=== PATIENT | male | born 1965 | race Hispanic/Latino ===

== ENCOUNTER 2024-12-18 06:27 | Observation (INO) | payer OTHER ==
[2024-12-12 12:14] LABS: BASOPHILS # (AUTO) 0.05 K/uL (0.00-0.20); BASOPHILS % (AUTO) 0.6 % (0.0-5.0); EOSINOPHILS # (AUTO) 0.33 K/uL (0.00-0.70); EOSINOPHILS % (AUTO) 4.3 % (0.0-8.0); HEMATOCRIT 46.2 % (42-54); IMMATURE GRANULOCYTE ABSOLUTE 0.04 K/uL (0-1); LYMPHOCYTES # (AUTO) 1.4 K/uL (1.0-4.8); LYMPHOCYTES % (AUTO) 18.6 % (21.0-51.0); MEAN CORPUSCULAR HEMOGLOBIN 30.9 pg (27.0-33.0); MEAN CORPUSCULAR HGB CONC 35.5 g/dL (32.0-36.0); MEAN CORPUSCULAR VOLUME 87.2 fL (79-99); MONOCYTES # (AUTO) 0.7 K/uL (0.1-1.0); MONOCYTES % (AUTO) 9.4 % (3.0-13.0); NEUTROPHILS # (AUTO) 5.2 K/uL (1.8-7.7); NEUTROPHILS % (AUTO) 66.6 % (40.0-77.0); PLATELET COUNT (AUTO) 225 K/uL (130-400); RED CELL DISTRIBUTION WIDTH 12.7 % (11.0-15.5); WHITE BLOOD COUNT (AUTO) 7.8 K/uL (4.8-10.8)
[2024-12-12 12:27] LABS: PROTHROMBIN TIME 10.6 SEC (9.6-11.6)
[2024-12-12 12:28] LABS: PARTIAL THROMBOPLASTIN TIME 27.3 SEC (26.3-35.5)
[2024-12-12 12:29] VITALS: BP 116/70; PULSE 55; RESP 20; TEMP 97.5
[2024-12-12 12:33] LABS: ALBUMIN 3.9 g/dL (3.5-5.0); CREATININE 0.9 mg/dL (0.5-1.3); POTASSIUM 3.9 mmol/L (3.5-5.1)
--- NOTE | 2024-12-12 12:45 | NUR ---
RE: IS INITIAL IS INITIAL TEACHING DONE BY RT MAGDY DURING PREOP
[2024-12-18] VITALS (17 sets, daily range): BP systolic 104–145; BP diastolic 56–83; PULSE 60–94; RESP 16–20; TEMP 97.6–97.8
[~2024-12-18] VITALS: Ht 172.7 cm; Wt 125.6 kg
[~2024-12-18 06:27] MED LIST: AMLO-257 PO; ASCO500T10 PO; ASPI-1197 PO; ATOR10TA69 PO; BUSP10TA3 PO; CHOL100046 PO; CYAN-35 PO; DOCU100C33 PO; ELDERBERRY PO; GABA-529 PO; LEVO5TAB29 PO; PROP20TA7 PO; SERT-440 PO; VITA-395 PO; ZINC220T4 PO
[2024-12-18] MEDS ORDERED: LACTATED RINGERS 1000ML 1,000 ML IV ONE (07:04)
[2024-12-18] MEDS ORDERED: FERROUS FUMARATE 324 MG TABLET PO PRN (07:30)
[2024-12-18] MEDS ORDERED: ondanSETRON 4MG INJ IVP PRN (07:30)
[2024-12-18] MEDS ORDERED: CALCIUM CARB 500MG PO PRN (07:30)
[2024-12-18] MEDS ORDERED: PoTASSium chloRIDE 20MEQ ER 20 MEQ ERTAB PO PRN (07:30)
[2024-12-18] MEDS ORDERED: DiphenhydrAMINE HCL 50 MG/ML VIAL IVP PRN (07:30)
[2024-12-18] MEDS ORDERED: PoTASSium chloRIDE 20MEQ/100ML 100 ML IV PRN (07:30)
[2024-12-18] MEDS ORDERED: HYDROcodone/APAP 5/325 1 TAB TABLET PO PRN (07:30)
[2024-12-18] MEDS ORDERED: PoTASSium chl 10% ELIXIR 20MEQ 20 MEQ/15 ML UDCUP PO PRN (07:30)
--- NOTE | 2024-12-18 07:34 | DS ---
Discharge Summary Hospital Course Summary: The patient was admitted to the hospital postoperatively on 12/18/2024 after undergoing left total knee arthroplasty. They did well with routine postoperative pain control. They worked well with physical therapy. The hospital course was otherwise uncomplicated. They were subsequently able to be discharged on postoperative day [] once discharge arrangements were made with home health physical therapy. Grinder Set Up Operator Internal(s): None Procedure(s): Left total knee arthroplasty, 12/18/2024 Assessment/Plan: ASSESSMENT: Status post left total knee arthroplasty doing well PLAN: See discharge instructions Discharge Instructions: Begin working with home health physical therapy. Dressing may be removed 12/20/2024 and left open to air. Showers ok allowing soap and water to run over the wound. Pat dry. Do not submerge wound in tub/pool. Do not apply ointments. Do not apply Betadine. Do not apply peroxide. Ice packs to decrease pain/swelling. Prescriptions have been sent to the pharmacy: *Buckner 5/325mg 1-2 tab every 6 hours as needed for severe pain. (please call for refills) Cyclobenzaprine 5mg 1 tab every 8 hours as needed for muscle spasm pain. Colace 100mg 1 tab orally twice a day as needed for constipation. Aspirin 325mg twice a day for 30 days to prevent blood clots. Call for a follow-up appointment in 2-3 weeks at [facility]. Home Medications: Reported Medications Hydroxyzine HCl (Hydroxyzine HCl) 25 Mg Tablet, 1 TAB PO HSPRN PRN for SLEEP for 30 Days, #60 TAB 0 Refills 12/18/24 Buspirone HCl (Buspirone HCl) 10 Mg Tablet, 20 MG PO BID, TAB 12/12/24 Vitamin E (Dl,Tocopheryl Acet) (Vitamin E) 180 Mg (400 Unit) Capsule, 360 MG PO BID, CAP 12/12/24 Sertraline HCl (Sertraline HCl) 100 Mg Tablet, 250 MG PO DAILY, TAB 12/12/24 Docusate Sodium (Docusate Sodium) 100 Mg Capsule, 100 MG PO DAILY, CAP 12/12/24 Atorvastatin Calcium (Atorvastatin Calcium) 10 Mg Tablet, 10 MG PO HS, TAB 12/12/24 Propranolol HCl (Propranolol HCl) 20 Mg Tablet, 20 MG PO BID, TAB 12/12/24 Gabapentin (Gabapentin) 100 Mg Capsule, 200 MG PO TID, CAP 12/12/24 Amlodipine Besylate (Amlodipine Besylate) 5 Mg Tablet, 5 MG PO BID, TAB 12/12/24 Zinc Sulfate (Zinc) 50 Mg Zinc (220 Mg) Tablet, 50 MG PO DAILY, TAB 12/12/24 [Elderberry] No Conflict Check, 1000 MG PO DAILY 12/12/24 Cyanocobalamin (Vitamin B-12) (Vitamin B-12) 1,000 Mcg Capsule, 1000 MCG PO DAILY, CAP 12/12/24 Ascorbic Acid (Ascorbic Acid) 500 Mg Tablet, 500 MG PO BID, TAB 12/12/24 Cholecalciferol (Vitamin D3) (Vitamin D3) 25 Mcg (1000 Unit) Capsule, 25 MCG PO DAILY, CAP 12/12/24 Levocetirizine Dihydrochloride (Xyzal) 5 Mg Tablet, 5 MG PO HS, TAB 12/12/24 Aspirin (Aspirin) 81 Mg Tab.chew, 81 MG PO DAILY, TAB.CHEW 12/12/24 MALAIKA KING MD December 18, 2024 07:34
[2024-12-18] MEDS ORDERED: HYDR-3421 PO (07:58)
[2024-12-18] MEDS ORDERED: ROPivacaine 0.5% 5MG/ML 30ML ONE (08:11)
[2024-12-18] MEDS ORDERED: ketOROlac 30MG VIAL (30MG/ML) ONE (08:11)
[2024-12-18] MEDS ORDERED: proPOFol 10 MG/ML 20ML VIAL IV ONE (08:43)
[2024-12-18] MEDS ORDERED: rocuRONium bROMide 10MG/1ML 5ML VL ONE ×2 (08:43→09:31)
[2024-12-18] MEDS ORDERED: LIDOCAINE PF 100MG/5ML (2%) SYRINGE 5ML ONE (08:43)
[2024-12-18] MEDS ORDERED: FENTanyl CITRate PF 50 MCG/1 ML 2ML VIAL ONE ×2 (08:43→10:09)
[2024-12-18] MEDS ORDERED: SUCCINYLCHOLINE CHLORIDE 20 MG/ML 10 ML VIAL ONE (08:43)
[2024-12-18] MEDS ORDERED: MIDAZOLAM HCL 1 MG/ML 2ML VIAL ONE (08:43)
[2024-12-18] MEDS: polyETHYLene GLYCol 3350 17 GM POWD.PACK PO SCH (09:00)
[2024-12-18] MEDS: ELDERBERRY PO SCH (09:00)
[2024-12-18] MEDS: CYANOCOBALAMIN (VITAMIN B-12) 1,000 MCG TABLET PO SCH (09:00)
[2024-12-18] MEDS: Cholecalciferol (Vitamin D3) 25 MCG PO SCH (09:00)
[2024-12-18] MEDS: SERTRALINE HCL 250 MG PO SCH (09:00)
[2024-12-18] MEDS: ceFAZolin SODIUM 1 GM VIAL ONE (09:10)
[2024-12-18] MEDS: ceFAZolin SODIUM 2 GM VIAL ONE (09:10)
[2024-12-18] MEDS: TRANEXAMIC ACID 1000MG/10ML ONE (09:15)
[2024-12-18] MEDS ORDERED: GLYCOPYRROLATE 0.2 MG/ML 5 ML VIAL ONE (11:07)
[2024-12-18] MEDS ORDERED: dexaMETHasone SOD PHOSPHATE 10MG/ML 1ML VIAL ONE (11:08)
[2024-12-18] MEDS ORDERED: NEOSTIGMINE METHYLSULFATE 1MG/ML IV ONE (11:08)
[2024-12-18] MEDS ORDERED: ondanSETRON 4MG INJ ONE (11:09)
[2024-12-18] MEDS: ketOROlac 15MG/ML VIAL (15MG/ML) IV SCH (11:55)
[2024-12-18] MEDS: ketOROlac 15MG/ML VIAL (15MG/ML) ONE (11:56)
--- NOTE | 2024-12-18 13:21 | OP ---
Operative Note: DATE OF PROCEDURE: 12/18/24 PREOPERATIVE DIAGNOSIS: Left knee osteoarthritis. POSTOPERATIVE DIAGNOSIS: Left knee osteoarthritis. PROCEDURE PERFORMED: Left knee total knee arthroplasty. SURGEON: Tomasa Reynoso MD SENIOR SQL SERVER DATABASE DEVELOPER: Letty Alanis and Ely Salgado. ANESTHESIA: General with adductor canal block. ANESTHESIA: NELLI Irwin. ESTIMATED BLOOD LOSS: 50cc. COMPLICATIONS: None. DRAINS: None. SPECIMENS REMOVED: resected bone. Not sent to pathology. IMPLANTS: [employer] Journey II BCS size 7 Oxinium femur, size 5 tibial base plate, 35 x 7.5 mm patella, 9 mm polyethylene STATEMENT OF MEDICAL NECESSITY: The patient is a 59-year-old male who suffers from left knee osteoarthritis failing conservative management. After discussion of the risks, benefits, and alternatives with the patient, they voluntarily agreed to undergo the aforementioned procedure. DESCRIPTION OF PROCEDURE: Patient was properly identified in the preoperative holding area. Surgical site marking was verified and surgery consent reviewed. The patient was then taken to the operating room and placed in supine position on the OR table. After induction of general anesthesia, preoperative antibiotics were given, all bony prominences were well-padded, and a well padded tourniquet was applied but not inflated at this time. The left lower extremity was then prepped and draped in usual sterile fashion. Surgical time out was done verifying correct surgery, side, site, and location to be performed. We then began the procedure by exsanguinating the limb using an Esmarch and inflating the tourniquet to 350 mmHg. At this point, we made an anterior midline incision using a 10 blade, coming down sharply the level of the fascia. Skin flaps were elevated medially and laterally. We then obtained a clean 10 blade and performed a standard medial parapatellar arthrotomy. We excised the infrapatellar fat pad. We performed our soft tissue releases off of the tibia. We transected the ACL and removed the anterior portion of the medial & lateral meniscus. We then brought the knee into hyperflexion with the patella everted. We used our entry reamer to enter the femoral canal. We then placed our intramedullary cutting guide for our distal femoral cutting block. We then performed our distal femoral osteotomy ensuring appropriate rotation and removed the bony wafer. We then removed these pins and block and then used jig 2 to size the distal femur with the aforementioned size found. We then placed our 5-in-1 cutting block in 4 degrees of external rotation and took our 5 cuts ensuring to protect the patellar tendon and the collateral ligaments. We then removed the cutting block and our bony fragments using a curved osteotome. We then placed our PCL retractor subluxating the tibia anteriorly. Using an extra medullary tibial cutting guide, we hung the block for our proximal tibial cut taking 2 mm off the more diseased portion. Prior to pinning this block in place, we ensured appropriate varus/valgus alignment and posterior slope similar to the [place] slope of the patient's knee. We then performed our proximal tibia l osteotomy and removed the bony wafer using Bovie electrocautery to release any remaining soft tissue attachments. We then used our tibial sizing paddle and checked once more for varus & valgus alignment and found this to be appropriate. At this point, we pinned our tibial paddle in place. We then removed the PCL retractor and subluxated the tibia posteriorly while we placed our femoral trial component. We then finished preparing the notch with the reamer and box chisel. The notch portion of the trial femoral component was then placed. A posterior stabilized polyethylene, size 9 trial was placed. We ended up performing a post erior capsular release in the medial side with the small release the anterior portion of the MCL to leave some tightness present. The knee was then taken through range of motion and found to have stable full range of motion. We then placed a bump under the ankle and everted the patella to perform our freehand cut of the undersurface the patella. We then sized our patella and reamed to the lug holes for this. We placed our trial patellar component and begin to take the knee through range of motion. The patella had significant lateral tracking so we performed a lateral release. At this point we began removing our trial components and punched the tibial keel prior to removing our tibial trial component. Final components were opened and cement was mixed on the back table while we injected local cocktail in the posterior capsule. We then thoroughly irrigated out the bone and dried the bony surfaces. We cemented our tibial component in place ensuring to remove excess cement and placed our trial polyethylene. We then cemented our femoral component in place once again taking time to ensure excess cement was removed leg was brought into full extension to help squeeze the excess cement from around the femoral component. We then brought the knee back in a flexion to remove this portion of the cement at this point we placed the ankle in a bump thoroughly irrigated off the patellar component and cemented our patellar component in standard fashion again removing excess cement. While we waited for the cement to cure, we thoroughly irrigated out the wound with normal saline. Once our cement had cured, we took the knee through a range of motion and found full and stable range of motion. We then elected to use the size 9 polyethylene and removed our trial polyethylene. We impacted our final polyethylene component in place in standard fashion and took the knee through a range of motion check once more. This was satisfactory so we began to repair the arthrotomy using #1 Vicryl in interrupted [id number] fashion. Subcutaneous tissue was repaired using 2-0 Vicryl. Running subcuticular 3-0 Monocryl stitch with Dermabond placed over this for the skin. We then applied a foam barrier dressing and a pressure dressing consisting of 4 x 4's fluffs and an Teodoro wrap. The tourniquet was then deflated. Patient was awakened from anesthesia, and they were taken to the recovery room in stable condition. TOMASA REYNOSO MD December 18, 2024 13:21
--- NOTE | 2024-12-18 13:41 | HMCIMG ---
Exam Type: KNEE/PATELLA 1-2VWS LT Clinical Information: S/P LEFT TKA SURGERY Comparison: None Findings: Routine views of the knee are without evidence of fracture, dislocation, arthritic, or inflammatory change. There is status post knee replacement with adequate visualization and alignment of bony and hardware elements. No complications are seen. There are vascular calcifications. The joint space is well maintained and there is no effusion. IMPRESSION: Status post knee replacement.
--- NOTE | 2024-12-18 14:00 | NUR ---
Order received and patient seen. Patient has a Rollator at home, will need SW upon DC. Plan is for DC home with family. PT team to follow. Addendum: 12/18/24 at 1429 by IFEANYI WATTS PT Amended: Links added.
[2024-12-18] MEDS: ketOROlac 15MG/ML VIAL (15MG/ML) IV PRN (15:44)
--- NOTE | 2024-12-18 17:00 | NUR ---
ORTHO COORDINATOR: TEACHING REGARDING DVT AND PNEUMONIA PREVENTION, PAIN EXPECTATIONS AND PAIN MANAGEMENT. PATIENT IN BED, JUST FINISHED REGULAR DIET TRAY, 100% CONSUMED. AT BEDSIDE. B SCD SLEEVES IN PLACE AND FUNCTIONING. INCENTIVE SPIROMETER AT BEDSIDE. PATIENT RETURN DEMONSTRATED PROPER USE OF INCENTIVE SPIROMETER AND FOOT FLEXION/EXTENSION EXERCISES. PRIMARY NURSE AT BEDSIDE. PATIENT ABLE TO VERBALIZE FREQUENCY OF USE OF INCENTIVE SPIROMETER. NUMERIC PAIN SCALE REVIEWED. PATIENT ENCOURAGED TO SET AN ALARM FOR EVERY FOUR HOURS AND PERFORM A PAIN SELF ASSESSMENT, CALL OUT FOR NURSE AND PROVIDE NUMERIC PAIN LEVEL WITH TYPE OF PAIN. DISCUSSED AFTERCARE, PATIENT INTENDS ON DISCHARGE TO HOME WITH HOME HEALTH PHYSICAL THERAPY. REVIEWED FIRST VISIT WOULD BE WITH A NURSE, SECOND WITH A PHYSICAL THERAPIST. EXPECTATION SET FOR PATIENT TO SHOWER TOMORROW. RATIONALE PROVIDED. PATIENT A VERBALIZED UNDERSTANDING TO ALL TEACHING. NO ADDITIONAL QUESTIONS OR CONCERNS AT THIS TIME.
[2024-12-18] MEDS: 0.9%NACL 1000ML 1,000 ML IV SCH (17:30)
[2024-12-18] MEDS: HYDROcodone/acetaMINOPHEN 10/325 MG TAB PO PRN (18:21)
[2024-12-18] MEDS: GABApentin 100 MG CAPSULE PO SCH (21:23)
[2024-12-18] MEDS: BUSPIRONE HCL 20 MG PO SCH (21:24)
[2024-12-18] MEDS: PROPRANOLOL HCL 20 MG TAB PO SCH (21:24)
[2024-12-18] MEDS: ASCORBIC ACID 500 MG TAB PO SCH (21:24)
[2024-12-18] MEDS: ceFAZolin SODIUM 2 GM VIAL IVP SCH (21:24)
[2024-12-18] MEDS: VITAMIN E 400 UNIT CAPSULE PO SCH (21:24)
[2024-12-18] MEDS: doCUSate SODIUM 100 MG CAP PO SCH (21:24)
[2024-12-18] MEDS: amLODIPine 5 MG TAB PO SCH (21:24)
[2024-12-18] MEDS: atorVAStatin 10 MG TABLET PO SCH (21:24)
[2024-12-19] VITALS (7 sets, daily range): BP systolic 132–145; BP diastolic 74–89; PULSE 65–85; RESP 18–22; TEMP 97.8–99; O2SAT 93
[2024-12-19 04:02] LABS: HEMATOCRIT 42.1 % (42-54); MEAN CORPUSCULAR HEMOGLOBIN 30.5 pg (27.0-33.0); MEAN CORPUSCULAR HGB CONC 34.9 g/dL (32.0-36.0); MEAN CORPUSCULAR VOLUME 87.3 fL (79-99); RED BLOOD CELL COUNT(AUTO) 4.82 MIL/uL (4.50-6.20); RED CELL DISTRIBUTION WIDTH 12.7 % (11.0-15.5); WHITE BLOOD COUNT (AUTO) 17.2 K/uL (4.8-10.8)
[2024-12-19 04:45] LABS: CREATININE 1.2 mg/dL (0.5-1.3)
--- NOTE | 2024-12-19 07:59 | PN ---
Ortho postop day one. This morning the patient is awake alert and oriented. His is present in the room. Reports adequate pain control. He is out of bed seated on a chair alternating extension and flexion of the operative extremity with a footstool. Ice is present to operative site and the Teodoro bandage his already been removed with the dressing intact. The gastrocnemius a soft and nontender negative Homans. Vital signs have remained stable and he is afebrile. Voiding on his own without difficulty passing gas as well. Laboratory results reviewed. Reinforced incentive spirometry and returned demonstration adequate. Ambulated with physical therapy approximately 10 ft in his pending further physical therapy this morning. The patient is anticipating going home with a home health. He is requesting that his discharge pain medication be sent to [facility]. Assessment: Status post left total knee arthroplasty. Plan: Continue with Dr. Reynoso's TKA protocol and discharge planning Vitals/Labs Vital Signs Date Time Temp Pulse Resp B/P (MAP) Pulse Ox O2 Delivery O2 Flow Rate FiO2 12/19/24 04:00 99.0 85 20 136/78 93 Room Air 12/18/24 21:25 0 21 Laboratory Tests 12/19/24 03:38 Medications Current Medications Cefazolin Sodium 1 gm STK-MED ONCE .ROUTE Last administered on 12/18/24at 09:10; Start 12/18/24 at 07:04; Stop 12/18/24 at 07:07; Status DC Cefazolin Sodium 2 gm STK-MED ONCE .ROUTE Last administered on 12/18/24at 09:10; Start 12/18/24 at 07:04; Stop 12/18/24 at 07:07; Status DC Lactated Ringer's 1,000 ml @ As Directed STK-MED ONCE IV; Start 12/18/24 at 07:04; Stop 12/18/24 at 07:07; Status DC Sodium Chloride 1,000 ml @ 100 mls/hr Q10H IV; Start 12/18/24 at 07:30; Stop 12/19/24 at 07:29; Status DC Polyethylene Glycol 17 gm DAILY PO; Start 12/18/24 at 09:00; Stop 01/17/25 at 08:59 Bisacodyl 10 mg DAILY PRN RC; Start 12/21/24 at 07:30; Stop 01/20/25 at 07:29 Ketorolac Tromethamine 15 mg Q6H PRN IV Last administered on 12/18/24at 15:44; Start 12/19/24 at 07:30; Stop 12/24/24 at 07:29 Ferrous Fumarate 324 mg DAILY PRN PO; Start 12/18/24 at 07:30; Stop 01/17/25 at 07:29 Ondansetron HCl 4 mg Q6H PRN IVP; Start 12/18/24 at 07:30; Stop 01/17/25 at 07:29 Calcium Carbonate 500 mg Q12H PRN PO; Start 12/18/24 at 07:30; Stop 01/17/25 at 07:29 Diphenhydramine HCl 25 mg Q6H PRN IVP; Start 12/18/24 at 07:30; Stop 01/17/25 at 07:29 Cefazolin Sodium 2 gm Q8H IVP Last administered on 12/18/24at 21:24; Start 12/18/24 at 12:30; Stop 12/18/24 at 20:31; Status DC Cyclobenzaprine HCl 5 mg Q8H PRN PO; Start 12/18/24 at 07:30; Stop 01/17/25 at 07:29 Aspirin 325 mg DAILY PO; Start 12/19/24 at 09:00; Stop 01/18/25 at 08:59 Ketorolac Tromethamine 15 mg Q8H IV Last administered on 12/18/24at 23:22; Start 12/18/24 at 07:30; Stop 12/18/24 at 23:31; Status DC Docusate Sodium 100 mg BID PO Last administered on 12/18/24at 21:24; Start 12/18/24 at 09:00; Stop 01/17/25 at 08:59 Potassium Chloride 100 ml @ 100 mls/hr AD PRN IV; Start 12/18/24 at 07:30; Stop 01/17/25 at 07:29 Potassium Chloride 20 meq AD PRN PO; Start 12/18/24 at 07:30; Stop 01/17/25 at 07:29 Potassium Chloride 20 meq AD PRN PO; Start 12/18/24 at 07:30; Stop 01/17/25 at 07:29 Tramadol HCl 50 mg Q6H PRN PO; Start 12/18/24 at 07:30; Stop 12/23/24 at 07:29 Acetaminophen/ Hydrocodone Bitart Q4H PRN PO; Start 12/18/24 at 07:30; Stop 12/18/24 at 08:00; Status DC Amlodipine Besylate 5 mg BID PO Last administered on 12/18/24at 21:24; Start 12/18/24 at 09:00; Stop 01/17/25 at 08:59 Ascorbic Acid 500 mg BID PO Last administered on 12/18/24at 21:24; Start 12/18/24 at 09:00; Stop 01/17/25 at 08:59 Atorvastatin Calcium 10 mg HS PO Last administered on 12/18/24at 21:24; Start 12/18/24 at 21:00; Stop 01/17/25 at 20:59 Gabapentin 200 mg TID PO Last administered on 12/18/24at 21:23; Start 12/18/24 at 09:00; Stop 01/17/25 at 08:59 Propranolol HCl 20 mg BID PO Last administered on 12/18/24at 21:24; Start 12/18/24 at 09:00; Stop 01/17/25 at 08:59 Vitamin E 400 unit BID PO Last administered on 12/18/24at 21:24; Start 12/18/24 at 09:00; Stop 01/17/25 at 08:59 Home Med Buspirone HCl 20 MG BID PO Last administered on 12/18/24at 21:24; Start 12/18/24 at 09:00; Stop 01/17/25 at 08:59 Home Med Cholecalciferol (Vitamin D3) 25 MCG DAILY PO; Start 12/18/24 at 09:00; Stop 01/17/25 at 08:59 Vitamin B Complex 1,000 mcg DAILY PO; Start 12/18/24 at 09:00; Stop 01/17/25 at 08:59 Home Med Levocetirizine Dihydrochloride (Xyzal) 5 MG HS PO; Start 12/18/24 at 21:00; Stop 01/17/25 at 20:59 Home Med Sertraline HCl 250 MG DAILY PO; Start 12/18/24 at 09:00; Stop 01/17/25 at 08:59 Home Med Zinc Sulfate (Zinc)... DAILY PO; Start 12/18/24 at 09:00; Stop 01/17/25 at 08:59 Home Med [Elderberry] 1,000 MG DAILY PO; Start 12/18/24 at 09:00; Stop 01/17/25 at 08:59 Acetaminophen/ Hydrocodone Bitart 1 tab Q6H PRN PO; Start 12/18/24 at 08:00; Stop 12/23/24 at 07:59 Acetaminophen/ Hydrocodone Bitart 1 tab Q6H PRN PO Last administered on 12/19/24at 03:37; Start 12/18/24 at 08:00; Stop 12/25/24 at 07:59 Ketorolac Tromethamine 30 mg STK-MED ONCE .ROUTE; Start 12/18/24 at 08:11; Stop 12/18/24 at 08:11; Status DC Ropivacaine 150 mg STK-MED ONCE .ROUTE; Start 12/18/24 at 08:11; Stop 12/18/24 at 08:11; Status DC Lidocaine HCl 100 mg STK-MED ONCE .ROUTE; Start 12/18/24 at 08:43; Stop 12/18/24 at 08:43; Status DC Succinylcholine Chloride 200 mg STK-MED ONCE .ROUTE; Start 12/18/24 at 08:43; Stop 12/18/24 at 08:43; Status DC Propofol 200 mg STK-MED ONCE IV; Start 12/18/24 at 08:43; Stop 12/18/24 at 08:43; Status DC Midazolam HCl 2 mg STK-MED ONCE .ROUTE; Start 12/18/24 at 08:43; Stop 12/18/24 at 08:43; Status DC Rocuronium [place] 50 mg STK-MED ONCE .ROUTE; Start 12/18/24 at 08:43; Stop 12/18/24 at 08:43; Status DC Fentanyl Citrate 100 mcg STK-MED ONCE .ROUTE; Start 12/18/24 at 08:43; Stop 12/18/24 at 08:43; Status DC Tranexamic Acid 1,000 mg STK-MED ONCE .ROUTE Last administered on 12/18/24at 09:15; Start 12/18/24 at 09:02; Stop 12/18/24 at 09:03; Status DC Rocuronium [place] 50 mg STK-MED ONCE .ROUTE; Start 5/14/25 at 09:31; Stop 12/18/24 at 09:31; Status DC Fentanyl Citrate 100 mcg STK-MED ONCE .ROUTE; Start 12/18/24 at 10:09; Stop 12/18/24 at 10:09; Status DC Glycopyrrolate 1 mg STK-MED ONCE .ROUTE; Start 12/18/24 at 11:07; Stop 12/18/24 at 11:08; Status DC Neostigmine Methylsulfate 10 mg STK-MED ONCE IV; Start 12/18/24 at 11:08; Stop 12/18/24 at 11:08; Status DC Dexamethasone Sodium Phosphate 10 mg STK-MED ONCE .ROUTE; Start 12/18/24 at 11:08; Stop 12/18/24 at 11:09; Status DC Ondansetron HCl 4 mg STK-MED ONCE .ROUTE; Start 12/18/24 at 11:09; Stop 12/18/24 at 11:09; Status DC Ketorolac Tromethamine 15 mg STK-MED ONCE .ROUTE; Start 12/18/24 at 11:50; Stop 12/18/24 at 11:51; Status DC TOÑITO GALLAGHER NP December 19, 2024 07:59
[2024-12-19] MEDS: traMADol HCL 50 MG TABLET PO PRN (08:38)
[2024-12-19] MEDS: ASPIRIN 325MG EC TAB PO SCH (08:39)
--- NOTE | 2024-12-19 11:38 | NUR ---
[facility] CM MET WITH PT AND HIS THIS MORNING, INITIAL ASSESSMENT DONE. PATIENT IS INDEPENDENT PRIOR TO SURGERY, LIVES AT HOME WITH HIS . PATIENT HAS A ROLLATOR WALKER, CANE, CPAP, BPM MACHINE. DENIES ANY OTHER EQUIPMENT/SERVICES. FEELS SAFE TO GO BACK HOME, STILL DRIVE, ABLE TO ASSIST WITH TRANSPORTATION AND NEEDS NECESSARY. DISCUSSED MD RECOMMENDATIONS FOR HOME W/HH AND DME FOR WALKER, PT AGREEABLE, ALSO REQUESTING TO HAVE A BEDSIDE COMMODE HIS TOILET IS LOW, CONSENT SINGED [facility] FOR [place] ASSIGNED HOME HEALTH AND DME. [facility] HOME W/HH AND DME ONCE APPROVED. CM TO CONTINUE TO FOLLOW UP. Addendum: 12/19/24 at 1140 by LELSI DILLARD LVN Amended: Links added.
[2024-12-19] MEDS: HYDROcodone/APAP 5/325 1 TAB TABLET PO PRN (13:13)
--- NOTE | 2024-12-19 16:40 | NUR ---
ORTHO COORDINATOR: REINFORCED TEACHING. PATIENT IN BED, DRESSED IN STREET CLOTHES. DRESSING DRY AND INTACT. PATIENT INTENDS TO DISCHARGE HOME WITH HOME HEALTH PHYSICAL THERAPY. REVIEWED PROCESS, NURSE WILL VISIT DAY ONE, SECOND VISIT WITH PHYSICAL THERAPIST. ENCOURAGED PATIENT TO CONTINUE PREMEDICATION PRIOR TO PHYSICAL THERAPY SESSIONS AND PERIODS OF HIGH ACTIVITY. ENCOURAGED PATIENT TO CONTINUE USE OF INCENTIVE SPIROMETER AND FOOT FLEXION AND EXTENSION EXERCISES. PATIENT AND VERBALIZED UNDERSTANDING TO ALL INSTRUCTIONS. NO ADDITIONAL QUESTIONS/CONCERNS.
[2024-12-19] MEDS: CYCLOBENZAPRINE HCL 10 MG TABLET PO PRN (17:08)
[2024-12-20] VITALS: BP 139/71; PULSE 75; RESP 20; TEMP 99.2
[2024-12-20 04:00] VITALS: BP 131/64; PULSE 77; RESP 18; TEMP 99
[2024-12-20 08:00] VITALS: BP 142/82; PULSE 74; RESP 19; TEMP 98.7
[2024-12-20 09:44] VITALS: O2SAT 95
[2024-12-20 12:00] VITALS: BP 95/61; PULSE 78; RESP 19; TEMP 99.2
[2024-12-20 16:00] VITALS: BP 151/94; PULSE 68; RESP 19; TEMP 98.9
[2024-12-20] MEDS ORDERED: HYDR-4060 PO (16:59)
[2024-12-20] MEDS ORDERED: ASPI-891 PO (16:59)
[2024-12-20] MEDS ORDERED: CYCL-309 PO (16:59)
[2024-12-20] MEDS ORDERED: DOCU-116 PO (16:59)
--- NOTE | 2024-12-20 17:30 | NUR ---
Report given to APC with Richard Wolf director of collections instruction are given and explained tot he patient. Appintments have been made for him for December 31. PIV is removed.
--- NOTE | 2024-12-20 17:53 | NUR ---
PT is wheeled downstairs in a wheelchair and he departs in a private vehicle.
[2024-12-21] MEDS ORDERED: BisaCODYL 10 MG SUPP.RECT RC PRN (07:30)
== END 2024-12-20 18:00 | disposition home health service (06) ==
LOC: DAH 06:27 → DAHIP 06:28 → DAH 06:28 → 4AH 12:40
PROVIDERS: ADMIT Student in an Organized Health Care Education/Training Program; ATTEND Student in an Organized Health Care Education/Training Program
DX: M17.12 Unilateral primary osteoarthritis, left knee (principal); G89.18 Other acute postprocedural pain; I10 Essential (primary) hypertension; F41.9 Anxiety disorder, unspecified; K21.9 Gastro-esophageal reflux disease without esophagitis; E66.01 Morbid (severe) obesity due to excess calories; F43.10 Post-traumatic stress disorder, unspecified; Z68.41 Body mass index [BMI] 40.0-44.9, adult; Z79.899 Other long term (current) drug therapy; Z86.2 Personal history of diseases of the blood and blood-forming organs and certain disorders involving the immune mechanism
CPT/HCPCS: 82040; 80048 ×2; 85025; 85610; 85730; 84134; 86140; 36415 ×2; 87641; 27447; 96376 ×2; 96365; 96375; 64447; 73560; 97161; 97116 ×4; 85027; 97530 ×3; G0378 ×53; A4663; J7120; J3010 ×2; J0690 ×3; J3490 ×4; J1100; J0330; J2003; J2250; J2704; J2405; J1885 ×5; J2710; J2795; C1713 ×2; C1776 ×2; A4649 ×2; A4930; A6255; A5120; A4215; A4223 ×2; A4213; A4222; A4221; A4216